=== PATIENT | female | born 1995 | race Caucasian/White ===

== ENCOUNTER 2019-01-06 19:23 | Inpatient (IN) | payer OTHER ==
[~2019-01-06] VITALS: Ht 167.6 cm; Wt 78.0 kg
[2019-01-06 22:08] VITALS: BP 122/81; PULSE 79; RESP 20
--- NOTE | 2019-01-06 22:20 | HP ---
Date/Time of Note Date/Time of Note DATE: 01/06/19 TIME: 22:20 Assessment/Plan VTE Prophylaxis SCD applied (from [facility] [place], [place]): Yes Pharmacological prophylaxis: NA/contraindicated Pharm contraindication: low risk/ambulating Assessment/Plan Hospital Course This is a 23-year female being admitted to the [facility] floor for: #1 right-sided hydronephrosis: Etiology unknown possibly secondary to UPJ obstruction. CT of the abdomen pelvis without contrast which showed: Unchanged moderate right hydronephrosis of uncertain etiology, possible UPJ obstruction. She has a normal creatinine. She had a urinalysis that was performed that was negative for any signs of acute infection. We will repeat a urinalysis. We will hydrate the patient with normal saline. Will consult urology and keep the patient n.p.o. except meds in case of any procedural intervention needs to be performed. Will order a KUB and renal ultrasound. #2 asthma: Singulair, PRN albuterol #3 history of depression: Monitor closely, psych consultation if indicated #4 DVT GI prophylaxis: SCDs, no GI prophylaxis indicated Further treatment strategy will be implemented with clinical course HPI/ROS Admit Date/Time Admit Date/Time Jan 06, 2019 at 20:47 Hx of Present Illness Chief complaint: Abdominal pain This is a 23-year-old female with a past medical history of asthma, PTSD, depression who presented to [facility] with complaints of severe right flank pain that started at 8 a.m. She reports that the pain associated with nausea and vomiting. She did reports that she also felt hot. She reported that she had a similar episode approximately 1 month ago and was told that she had a swollen kidney. She denies any urinary frequency urgency or dysuria. Her last menstrual period was on December 01. Pertinent laboratory findings a transversely showed: CBC: White blood cell count 8.7/hemoglobin 13.1/hematocrit 40.0/platelet count 201 BMP sodium 138 potassium 3.7 chloride 102 CO2 23 glucose 88 creatinine 0.99 BUN 10 lipase 19 beta-hCG serum was negative urinalysis was negative for leukoesterase and negative for nitrites. She had a CT of the abdomen pelvis without contrast which showed: Unchanged moderate right hydronephrosis of uncertain etiology, possible UPJ obstruction. Mild pelvic free fluid. Chest x-ray: Normal examination Allergies: NKDA Medications: Albuterol inhaler Singulair 10 mg p.o. daily Zofran 4 mg as needed ROS Const: As per HPI Eyes : No pain discharge or redness or change in visual acuity ENT: No pain, sore throat, congestion, congestion, dysphagia or discharge Respiratory: No shortness of breath, cough, sputum, wheezing, or pleuritic pain Cardiovascular: No chest pain, palpitation, PND, or edema GI : As per HPI Genitourinary: As per HPI Musculoskeletal: No joint pain, back pain, neck pain, restricted range of motion in neck or joints Skin: No rash, bruising or hives Neuro: No headache, dizziness, syncope, seizure, focal weakness Endocrine: No polyuria, polydipsia, temperature intolerance Psych: No hallucination, depression, anxiety or suicidal ideation PMH/Family/Social Past Medical History Asthma, PTSD, depression, hydronephrosis Medications Current Medications Sodium Chloride 1,000 ml @ 100 mls/hr Q10H IV ; Start 01/06/19 at 22:08; Stop 01/07/19 at 10:07 IV Flush (NS 3 ml) 3 ml PER PROTOCOL IV ; Start 01/06/19 at 22:30 Ondansetron HCl (Zofran Inj) 4 mg Q6H PRN IV NAUSEA/VOMITING; Start 01/06/19 at 22:30 Acetaminophen (Tylenol Tab) 650 mg Q6H PRN PO .PAIN 1-3 OR TEMP; Start 01/06/19 at 22:30 Acetaminophen/ Hydrocodone Bitart ([place] (5/325)) 1 tab Q6H PRN PO .MOD PAIN 4- 6; Start 01/06/19 at 22:30 Morphine Sulfate (morphine) 2 mg Q4H PRN IV .SEVERE PAIN 7-10; Start 01/06/19 at 22:30 Docusate Sodium (Colace) 100 mg Q12H PRN PO .CONSTIPATION; Start 01/06/19 at 22:30 Bisacodyl (Dulcolax) 5 mg DAILY PRN PO .CONSTIPATION; Start 01/06/19 at 22:30 Coded Allergies: No Known Allergies (Verified Allergy, Unknown, 01/06/19) Past Surgical History Past Surgical Hx: no surgical history Family History Significant Family History: no pertinent family hx Social History Alcohol Use: none Smoking Status: Never smoker Drug Use: none Exam/Review of Systems Vital Signs Vitals Vital Signs Date Temp Pulse Resp B/P (MAP) Pulse Ox O2 O2 Flow FiO2 Time Delivery Rate 01/06/19 98.3 79 20 122/81 99 22:08 (95) Exam Exam General: Patient is a pleasant female currently lying in bed in mild discomfort from right-sided flank pain HEENT: Atraumatic, normocephalic. The pupils are equal, round and reactive. Extraocular motor are intact Neck: Supple with full range of motion. No rigidity or meningismus Chest: Nontender Lungs: Clear to auscultation bilaterally no crackles rales or wheezing Heart: Normal S1-S2, Regular rhythm and rate. No murmur, S3, or S4 Abdomen: Soft , right-sided flank pain to palpation, nontender, nondistended , bowel sounds are present. No guarding no rebound tenderness , No masses or organomegaly. Extremities: Normal to inspection, no edema no cyanosis Neurologic: Normal mental status, speech normal, cranial nerves II through XII are intact, motor and sensory are intact, NIKITA VELAZCO Jan 06, 2019 22:20
[2019-01-06] MEDS: morphine 2 MG INJ IV PRN (22:28)
[2019-01-06] MEDS ORDERED: NACL 0.9% 3 ML SYG IV SCH (22:30)
[2019-01-06] MEDS ORDERED: ACETAMINOPHEN 325 MG TAB PO PRN (22:30)
[2019-01-06] MEDS ORDERED: DOCUSATE SODIUM 100 MG CAP PO PRN (22:30)
[2019-01-06] MEDS ORDERED: BISACODYL (EC) 5 MG TAB PO PRN (22:30)
[2019-01-06] MEDS: ONDANSETRON 4 MG INJ IV PRN (22:33)
[2019-01-06] MEDS: SOD CHLORIDE 0.9% 1,000 ML IV SCH (23:03)
[2019-01-06] MEDS: HYDROCODONE/APAP (5/325) TAB PO PRN (23:21)
[2019-01-07] MEDS ORDERED: POTASSIUM CHLORIDE (SR) 20 MEQ TAB PO STA (00:46)
[2019-01-07] MEDS ORDERED: LORAZEPAM 0.5 MG TAB PO ONE (01:00)
[2019-01-07] MEDS ORDERED: ALBUTEROL 0.083% (NEB) 2.5 MG/3 ML AMP HHN PRN (01:00)
[2019-01-07] MEDS: HYDROmorphONE 0.5 MG/0.5 ML SYG IV PRN ×4 (01:01→19:48)
[2019-01-07 02:29] VITALS: BP 131/74; PULSE 70; RESP 18
[2019-01-07] MEDS ORDERED: ALBUTEROL/IPRATROPIUM (NEB) 3 ML AMP HHN STA (07:16)
[2019-01-07] MEDS ORDERED: LORAZEPAM 2 MG INJ ONE (07:20)
--- NOTE | 2019-01-07 07:29 | EN ---
Date/Time of Note Date/Time of Note DATE: 01/07/19 TIME: : Event Note Medicine Medicine Event Note FIRE HAZARD INSPECTOR note FIRE HAZARD INSPECTOR called at approximately 7:05 AM. FIRE HAZARD INSPECTOR called for acute respiratory distress. Patient seen and examined at the bedside. Patient was not noticeably in respiratory distress. Patient's blood pressure was elevated in the 170s, she was satting at 97% on room air. Patient was having audible expiratory wheezing from the upper airway. She is looked to be in a panic attack however patient states that she felt like it was her asthma. Lungs were clear to auscultation. She was given a stat nebulization breathing treatment and she was also given a dose of Ativan. Patient was subsequently improved. Solu-Medrol was also ordered. Vitals: Heart rate 120 blood pressure 170/86 respirations 30 SPO2 97% on room air General: Patient appears to be in acute respiratory distress, she does have some upper airway wheezing Lungs: Clear to auscultation bilaterally CVS: Sinus tachycardia Neuro: Alert and oriented, she does appear to be in respiratory distress Assessment and plan: #1 acute respiratory distress: Anxiety versus asthma exacerbation. Lungs appear to be clear on auscultation. She was given a DuoNeb treatment as well as Ativan with subsequent good response. Loading dose of Solu-Medrol was also ordered. My suspicion is that this is more likely anxiety, however we will continue to monitor. Nebs as needed. Continue to monitor on MedSurg. Greater than 25 minutes of critical care time was spent on the care management this patient. NIKTIA VELAZCO Jan 07, 2019 07:29
[2019-01-07] MEDS ORDERED: ALBUTEROL/IPRATROPIUM (NEB) 3 ML AMP HHN PRN ×2 (07:30→15:00)
[2019-01-07] MEDS ORDERED: LORAZEPAM 2 MG INJ IV ONE (07:30)
[2019-01-07] MEDS ORDERED: METHYLPREDNISOLONE 125 MG INJ IV ONE (07:30)
[2019-01-07] MEDS: SOD CHLORIDE 0.9% 1,000 ML IV SCH ×2 (08:01→08:35)
[2019-01-07 08:14] VITALS: BP 139/98; PULSE 93; RESP 18
[2019-01-07] MEDS: MONTELUKAST 10 MG TAB PO SCH (08:24)
--- NOTE | 2019-01-07 08:34 | CONS ---
Assessment/Plan Assessment/Plan Hospital Course (Demo Recall) 23-year-old female presented to the emergency room at [facility] with a right flank pain. She underwent a CT scan of the abdomen and pelvis and that showed a right hydronephrosis possibly secondary to ureteropelvic junction obstruction. Patient was transferred to [facility] because of her insurance. Patient states that she did have nausea but no vomiting. She denies any gross hematuria, no dysuria, no urgency or frequency. She did have a similar pain about a month ago and she also had a CT scan and the same findings were noted. The present CT scan was unchanged when compared to the previous one. The patient does not think that the pain is associated with the her oral intake of fluids. On the exam she is tender in the right flank area,right side of the abdomen and suprapubic area. Impression:1- Right hydronephrosis possible right ureteropelvic junction obstruction. 2-rule out urinary tract infection Plan: Renal scan with Lasix, urine culture. Consultation Date/Type/Reason Admit Date/Time Jan 06, 2019 at 20:47 Date of Consultation: Jan 07, 2019 Type of Consult Urology Reason for Consultation Right hydronephrosis Requesting Provider: NIKITA VELAZCO Date/Time of Note DATE: 01/07/19 TIME: 08:25 Hx of Present Illness 23-year-old female presented to the emergency room at [facility] with a right flank pain. She underwent a CT scan of the abdomen and pelvis and that showed a right hydronephrosis possibly secondary to ureteropelvic junction obstruction. Patient was transferred to [facility] because of her insurance. Patient states that she did have nausea but no vomiting. She denies any gross hematuria, no dysuria, no urgency or frequency. She did have a similar pain about a month ago and she also had a CT scan and the same findings were noted. The present CT scan was unchanged when compared to the previous one. The patient does not think that the pain is associated with the her oral intake of fluids. Constitutional: no complaints Eyes: no complaints ENT: no complaints Respiratory: shortness of breath, other (History of asthma) Cardiovascular: No chest pain Gastrointestinal: nausea; No vomiting Genitourinary: flank pain (Right side) Skin: other (Has tattoos on most of her body) Neurologic: no complaints Endocrine: no complaints Lymphatic: no complaints Psychological: anxiety Immunologic: no complaints Past Medical History Medical History: other (Asthma and anxiety) Medications Current Medications Sodium Chloride 1,000 ml @ 100 mls/hr Q10H IV Last administered on 01/06/19at 23:03; Admin Dose 100 MLS/HR; Start 01/06/19 at 22:08; Stop 01/07/19 at 10:07 IV Flush (NS 3 ml) 3 ml PER PROTOCOL IV ; Start 01/06/19 at 22:30 Ondansetron HCl (Zofran Inj) 4 mg Q6H PRN IV NAUSEA/VOMITING Last administered on 01/06/19at 22:33; Admin Dose 4 MG; Start 01/06/19 at 22:30 Acetaminophen (Tylenol Tab) 650 mg Q6H PRN PO .PAIN 1-3 OR TEMP; Start 01/06/19 at 22:30 Acetaminophen/ Hydrocodone Bitart ([place] (5/325)) 1 tab Q6H PRN PO .MOD PAIN 4- 6 Last administered on 01/06/19at 23:21; Admin Dose 1 TAB; Start 01/06/19 at 22:30 Morphine Sulfate (morphine) 2 mg Q4H PRN IV .SEVERE PAIN 7-10 Last administered on 01/06/19at 22:28; Admin Dose 2 MG; Start 01/06/19 at 22:30 Docusate Sodium (Colace) 100 mg Q12H PRN PO .CONSTIPATION; Start 01/06/19 at 22:30 Bisacodyl (Dulcolax) 5 mg DAILY PRN PO .CONSTIPATION; Start 01/06/19 at 22:30 Hydromorphone HCl (Dilaudid) 0.5 mg Q4H PRN IV SEVERE PAIN LEVEL 7-10 Last a dministered on 01/07/19at 07:02; Admin Dose 0.5 MG; Start 01/07/19 at 01:00 Albuterol (Proventil 0.083% (Neb)) 2.5 mg Q4H RESP THERAPY PRN HHN SHORTNESS OF BREATH; Start 01/07/19 at 01:00 Miscellaneous Information Patients own medicat... BID@10,16 XX ; Start 01/07/19 at 10:00 Montelukast Sodium (Singulair) 10 mg DAILY PO ; Start 01/07/19 at 09:00 Lorazepam (Ativan) 0.5 mg Q12H PRN IV ANXIETY; Start 01/07/19 at 07:30 Allergies: Coded Allergies: No Known Allergies (Verified Allergy, Unknown, 01/06/19) Past Surgical History Past Surgical Hx: no surgical history Social History Alcohol Use: none Smoking Status: Never smoker Drug Use: none Other Social History She is single, denies any . Sexually active. Last menstrual periods December 15, 2018 Exam/Review of Systems Exam Vitals Vital Signs Date Temp Pulse Resp B/P (MAP) Pulse Ox O2 O2 Flow FiO2 Time Delivery Rate 01/07/19 97.4 93 18 139/98 99 Room Air 08:14 (112) Intake and Output 01/06/19 01/06/19 01/07/19 1515:00 23:00 07:00 IntakeIntake Total 600 ml BalanceBalance 600 ml Constitutional: alert, oriented Psych: anxiety Head: normocephalic Eyes: nl conjunctiva ENMT: nl external ears & nose Neck: supple Respiratory: normal air movement Cardiovascular: No jugular venous distention (JVD) Gastrointestinal: tender (Right side and in the right lower quadrant and suprapubic area) Genitourinary - Female: CVA tenderness (Right side) Musculoskeletal: nl extremities to inspection Extremities: No calf tenderness Neurological: nl mental status Skin: other (Tattoos on the most of her body) Results Result Diagram: 01/07/19 0547 01/07/19 0547 Results 24hrs Laboratory Tests Test 01/06/19 22:50 01/06/19 22:51 01/07/19 05:00 01/07/19 05:47 Serum HCG, NEGATIVE Qualitative White Blood Count 7.8 7.1 Red Blood Count 4.38 4.47 Hemoglobin 12.4 12.4 Hematocrit 38.7 39.0 Mean Corpuscular 88.4 87.2 Volume Mean Corpuscular 28.3 L 27.7 L Hemoglobin Mean Corpuscular 32.0 31.8 L Hemoglobin Concent Red Cell 12.7 12.9 Distribution Width Platelet Count 190 198 Mean Platelet Volume 11.2 H 11.4 H Immature 0.100 0.100 Granulocytes % Neutrophils % 51.7 54.2 Lymphocytes % 34.5 31.6 Monocytes % 11.6 H 12.0 H Eosinophils % 1.7 1.7 Basophils % 0.4 0.4 Nucleated Red Blood 0.0 0.0 Cells % Immature 0.010 0.010 Granulocytes # Neutrophils # 4.0 3.8 Lymphocytes # 2.7 2.2 Monocytes # 0.9 0.9 Eosinophils # 0.1 0.1 Basophils # 0.0 0.0 Nucleated Red Blood 0.0 0.0 Cells # Sodium Level 141 142 Potassium Level 3.4 L 4.4 Chloride Level 110 112 H Carbon Dioxide Level 24 23 Anion Gap 7 7 Blood Urea Nitrogen 9 8 Creatinine 0.90 0.89 Est Glomerular > 60 > 60 Filtrat Rate mL/min Glucose Level 80 78 Calcium Level 8.3 L 8.0 L Total Bilirubin 0.4 0.3 Direct Bilirubin 0.00 0.00 Indirect Bilirubin 0.4 0.3 Aspartate Amino 17 16 Transf (AST/SGOT) Alanine 14 16 Aminotransferase (AL T/SGPT) Alkaline Phosphatase 49 41 L Total Protein 6.6 6.1 Albumin 3.5 3.1 L Globulin 3.10 3.00 Albumin/Globulin 1.12 1.03 Ratio Urine Color YELLOW Urine Clarity CLEAR Urine pH 8.0 Urine Specific 1.009 [place] Urine Ketones NEGATIVE Urine Nitrite NEGATIVE Urine Bilirubin NEGATIVE Urine Urobilinogen NEGATIVE Urine Leukocyte NEGATIVE Esterase Urine Hemoglobin NEGATIVE Urine Glucose NEGATIVE Urine Total Protein NEGATIVE Medications Medication Current Medications Sodium Chloride 1,000 ml @ 100 mls/hr Q10H IV Last administered on 01/06/19at 23:03; Admin Dose 100 MLS/HR; Start 01/06/19 at 22:08; Stop 01/07/19 at 10:07 IV Flush (NS 3 ml) 3 ml PER PROTOCOL IV ; Start 01/06/19 at 22:30 Ondansetron HCl (Zofran Inj) 4 mg Q6H PRN IV NAUSEA/VOMITING Last administered on 01/06/19at 22:33; Admin Dose 4 MG; Start 01/06/19 at 22:30 Acetaminophen (Tylenol Tab) 650 mg Q6H PRN PO .PAIN 1-3 OR TEMP; Start 01/06/19 at 22:30 Acetaminophen/ Hydrocodone Bitart ([place] (5/325)) 1 tab Q6H PRN PO .MOD PAIN 4- 6 Last administered on 01/06/19at 23:21; Admin Dose 1 TAB; Start 01/06/19 at 22:30 Morphine Sulfate (morphine) 2 mg Q4H PRN IV .SEVERE PAIN 7-10 Last administered on 01/06/19at 22:28; Admin Dose 2 MG; Start 01/06/19 at 22:30 Docusate Sodium (Colace) 100 mg Q12H PRN PO .CONSTIPATION; Start 01/06/19 at 22:30 Bisacodyl (Dulcolax) 5 mg DAILY PRN PO .CONSTIPATION; Start 01/06/19 at 22:30 Hydromorphone HCl (Dilaudid) 0.5 mg Q4H PRN IV SEVERE PAIN LEVEL 7-10 Last administered on 01/07/19at 07:02; Admin Dose 0.5 MG; Start 01/07/19 at 01:00 Albuterol (Proventil 0.083% (Neb)) 2.5 mg Q4H RESP THERAPY PRN HHN SHORTNESS OF BREATH; Start 01/07/19 at 01:00 Miscellaneous Information Patients own medicat... BID@10,16 XX ; Start 01/07/19 at 10:00 Montelukast Sodium (Singulair) 10 mg DAILY PO ; Start 01/07/19 at 09:00 Lorazepam (Ativan) 0.5 mg Q12H PRN IV ANXIETY; Start 01/07/19 at 07:30 EVON ONTIVEROS MD Jan 07, 2019 08:34
--- NOTE | 2019-01-07 10:32 | PN ---
Date/Time of Note Date/Time of Note DATE: 01/07/19 TIME: 10:31 Assessment/Plan VTE Prophylaxis SCD applied (from [facility]): Yes Pharmacological prophylaxis: NA/contraindicated Pharm contraindication: low risk/ambulating Assessment/Plan Hospital Course SUBJECTIVE: Continues to have right-sided flank pain. OBJECTIVE: Physical Exam General: Adequately build 23 year-old female lying in bed in no apparent distress. HEENT: Normocephalic, atraumatic. Eyes: Anicteric sclerae, conjunctivae clear. ENT: Nasal septum midline, oral mucosa moist. Neck supple, no JVD noticed. Respiratory: Bilaterally clear breath sounds. No use of accessory muscles of respiration. No adventitious breath sounds. Cardiovascular: S1, S2 heard. Regular rate and rhythm. Abdomen: Soft and nondistended. Suprapubic and right lower quadrant tenderness. Bowel sounds positive in all 4 quadrants. Genitourinary: Right CVA tenderness. Extremities: No cyanosis, no clubbing, no edema. Peripheral pulses palpable. Neurologic: Cranial nerves II through XII grossly intact. The patient is awake, alert, and oriented. Skin: Normal skin turgor. No skin rashes. Multiple tattoos. Labs & Vitals per chart ASSESSMENT & PLAN 23-year-old female with past medical history of asthma, PTSD, and depression who presented to a local emergency room with chief complaint of severe right-sided flank pain with associated nausea and vomiting with the CT scan showing right- sided hydronephrosis, possible secondary to UPJ obstruction. The patient had similar CT scan findings approximately 1 month ago at the same facility. The patient was transferred to [facility] because of insurance reasons. 1. Right-sided hydronephrosis. Suspect UPJ obstruction. Urology following. Nuclear medicine renal scan with Lasix ordered. Continue pain control. 2. Asthma. Continue leukotriene inhibitors. Continue PRN YOBANI. 3. Anxiety disorder. Continue PRN anxiolytics. 4. Fluids, electrolytes, and nutrition. Regular diet. 5. DVT prophylaxis. Bilateral SCDs. 6. Plan. Continue pain control. Await nuclear medicine renal scan. Await further urology recommendations. The patient was seen in collaboration with Dr. Blood. Result Diagram: 01/07/19 0547 01/07/19 0547 Results 24hrs Laboratory Tests Test 01/06/19 22:50 01/06/19 22:51 01/07/19 05:00 01/07/19 05:47 Serum HCG, NEGATIVE Qualitative White Blood Count 7.8 7.1 Red Blood Count 4.38 4.47 Hemoglobin 12.4 12.4 Hematocrit 38.7 39.0 Mean Corpuscular 88.4 87.2 Volume Mean Corpuscular 28.3 L 27.7 L Hemoglobin Mean Corpuscular 32.0 31.8 L Hemoglobin Concent Red Cell 12.7 12.9 Distribution Width Platelet Count 190 198 Mean Platelet Volume 11.2 H 11.4 H Immature 0.100 0.100 Granulocytes % Neutrophils % 51.7 54.2 Lymphocytes % 34.5 31.6 Monocytes % 11.6 H 12.0 H Eosinophils % 1.7 1.7 Basophils % 0.4 0.4 Nucleated Red Blood 0.0 0.0 Cells % Immature 0.010 0.010 Granulocytes # Neutrophils # 4.0 3.8 Lymphocytes # 2.7 2.2 Monocytes # 0.9 0.9 Eosinophils # 0.1 0.1 Basophils # 0.0 0.0 Nucleated Red Blood 0.0 0.0 Cells # Sodium Level 141 142 Potassium Level 3.4 L 4.4 Chloride Level 110 112 H Carbon Dioxide Level 24 23 Anion Gap 7 7 Blood Urea Nitrogen 9 8 Creatinine 0.90 0.89 Est Glomerular > 60 > 60 Filtrat Rate mL/min Glucose Level 80 78 Calcium Level 8.3 L 8.0 L Total Bilirubin 0.4 0.3 Direct Bilirubin 0.00 0.00 Indirect Bilirubin 0.4 0.3 Aspartate Amino 17 16 Transf (AST/SGOT) Alanine 14 16 Aminotransferase (AL T/SGPT) Alkaline Phosphatase 49 41 L Total Protein 6.6 6.1 Albumin 3.5 3.1 L Globulin 3.10 3.00 Albumin/Globulin 1.12 1.03 Ratio Urine Color YELLOW Urine Clarity CLEAR Urine pH 8.0 Urine Specific 1.009 [place] Urine Ketones NEGATIVE Urine Nitrite NEGATIVE Urine Bilirubin NEGATIVE Urine Urobilinogen NEGATIVE Urine Leukocyte NEGATIVE Esterase Urine Hemoglobin NEGATIVE Urine Glucose NEGATIVE Urine Total Protein NEGATIVE Exam/Review of Systems Exam Vitals Vital Signs Date Temp Pulse Resp B/P (MAP) Pulse Ox O2 O2 Flow FiO2 Time Delivery Rate 01/07/19 97.4 93 18 139/98 99 Room Air 08:14 (112) Intake and Output 01/06/19 01/06/19 01/07/19 1515:00 23:00 07:00 IntakeIntake Total 600 ml BalanceBalance 600 ml Results Results 24hrs Laboratory Tests Test 01/06/19 22:50 01/06/19 22:51 01/07/19 05:00 01/07/19 05:47 Serum HCG, NEGATIVE Qualitative White Blood Count 7.8 7.1 Red Blood Count 4.38 4.47 Hemoglobin 12.4 12.4 Hematocrit 38.7 39.0 Mean Corpuscular 88.4 87.2 Volume Mean Corpuscular 28.3 L 27.7 L Hemoglobin Mean Corpuscular 32.0 31.8 L Hemoglobin Concent Red Cell 12.7 12.9 Distribution Width Platelet Count 190 198 Mean Platelet Volume 11.2 H 11.4 H Immature 0.100 0.100 Granulocytes % Neutrophils % 51.7 54.2 Lymphocytes % 34.5 31.6 Monocytes % 11.6 H 12.0 H Eosinophils % 1.7 1.7 Basophils % 0.4 0.4 Nucleated Red Blood 0.0 0.0 Cells % Immature 0.010 0.010 Granulocytes # Neutrophils # 4.0 3.8 Lymphocytes # 2.7 2.2 Monocytes # 0.9 0.9 Eosinophils # 0.1 0.1 Basophils # 0.0 0.0 Nucleated Red Blood 0.0 0.0 Cells # Sodium Level 141 142 Potassium Level 3.4 L 4.4 Chloride Level 110 112 H Carbon Dioxide Level 24 23 Anion Gap 7 7 Blood Urea Nitrogen 9 8 Creatinine 0.90 0.89 Est Glomerular > 60 > 60 Filtrat Rate mL/min Glucose Level 80 78 Calcium Level 8.3 L 8.0 L Total Bilirubin 0.4 0.3 Direct Bilirubin 0.00 0.00 Indirect Bilirubin 0.4 0.3 Aspartate Amino 17 16 Transf (AST/SGOT) Alanine 14 16 Aminotransferase (AL T/SGPT) Alkaline Phosphatase 49 41 L Total Protein 6.6 6.1 Albumin 3.5 3.1 L Globulin 3.10 3.00 Albumin/Globulin 1.12 1.03 Ratio Urine Color YELLOW Urine Clarity CLEAR Urine pH 8.0 Urine Specific 1.009 [place] Urine Ketones NEGATIVE Urine Nitrite NEGATIVE Urine Bilirubin NEGATIVE Urine Urobilinogen NEGATIVE Urine Leukocyte NEGATIVE Esterase Urine Hemoglobin NEGATIVE Urine Glucose NEGATIVE Urine Total Protein NEGATIVE Medications Medication Current Medications IV Flush (NS 3 ml) 3 ml PER PROTOCOL IV ; Start 01/06/19 at 22:30 Ondansetron HCl (Zofran Inj) 4 mg Q6H PRN IV NAUSEA/VOMITING Last administered on 01/06/19at 22:33; Admin Dose 4 MG; Start 01/06/19 at 22:30 Acetaminophen (Tylenol Tab) 650 mg Q6H PRN PO .PAIN 1-3 OR TEMP; Start 01/06/19 at 22:30 Acetaminophen/ Hydrocodone Bitart ([place] (5/325)) 1 tab Q6H PRN PO .MOD PAIN 4- 6 Last administered on 01/06/19at 23:21; Admin Dose 1 TAB; Start 01/06/19 at 22:30 Morphine Sulfate (morphine) 2 mg Q4H PRN IV .SEVERE PAIN 7-10 Last administered on 01/06/19at 22:28; Admin Dose 2 MG; Start 01/06/19 at 22:30 Docusate Sodium (Colace) 100 mg Q12H PRN PO .CONSTIPATION; Start 01/06/19 at 22:30 Bisacodyl (Dulcolax) 5 mg DAILY PRN PO .CONSTIPATION; Start 01/06/19 at 22:30 Hydromorphone HCl (Dilaudid) 0.5 mg Q4H PRN IV SEVERE PAIN LEVEL 7-10 Last administered on 01/07/19at 07:02; Admin Dose 0.5 MG; Start 01/07/19 at 01:00 Albuterol (Proventil 0.083% (Neb)) 2.5 mg Q4H RESP THERAPY PRN HHN SHORTNESS OF BREATH; Start 01/07/19 at 01:00 Miscellaneous Information Patients own medicat... BID@16 XX ; Start 01/07/19 at 10:00 Montelukast Sodium (Singulair) 10 mg DAILY PO Last administered on 01/07/19at 08:24; Admin Dose 10 MG; Start 01/07/19 at 09:00 Lorazepam (Ativan) 0.5 mg Q12H PRN IV ANXIETY; Start 01/07/19 at 07:30 LORENZO AUGUST NP Jan 07, 2019 10:32
[2019-01-07] MEDS: morphine 2 MG INJ IV PRN (12:44)
[2019-01-07] MEDS ORDERED: FUROSEMIDE 40 MG INJ IV ONE (14:00)
[2019-01-07] MEDS: ALBUTEROL/IPRATROPIUM (NEB) 3 ML AMP HHN SCH ×2 (14:30→19:31)
[2019-01-07] MEDS: LORAZEPAM 2 MG INJ IV PRN (17:03)
[2019-01-07 19:42] VITALS: BP 131/78; PULSE 105; RESP 16
[2019-01-07] MEDS: ONDANSETRON 4 MG INJ IV PRN (19:48)
[2019-01-07] MEDS: morphine 4 MG/ML VIAL IV PRN (21:30)
[2019-01-08] MEDS: ALBUTEROL/IPRATROPIUM (NEB) 3 ML AMP HHN SCH ×2 (00:57→08:00)
[2019-01-08] MEDS: morphine 4 MG/ML VIAL IV PRN ×2 (01:16→05:17)
[2019-01-08] MEDS: ONDANSETRON 4 MG INJ IV PRN (01:16)
[2019-01-08 02:16] VITALS: BP 114/60; PULSE 87; RESP 18
[2019-01-08] MEDS: LORAZEPAM 2 MG INJ IV PRN (06:03)
[2019-01-08 08:00] VITALS: BP 109/73; PULSE 60; RESP 17
--- NOTE | 2019-01-08 08:16 | CONS ---
Consult Date/Type/Reason Admit Date/Time Jan 06, 2019 at 20:47 Initial Consult Date 01/07/19 Type of Consultation: Urology Reason for Consultation Right hydronephrosis possible right ureteropelvic junction obstruction Requesting Provider: NIKITA VELAZCO Date/Time of Note DATE: 01/08/19 TIME: 08:10 Subjective Patient denies having any pain at the present. She did have pain yesterday after she was given Lasix at the time of the renal scan. Objective Vitals Vital Signs Date Temp Pulse Resp B/P (MAP) Pulse Ox O2 O2 Flow FiO2 Time Delivery Rate 01/08/19 08:01 01/08/19 98.3 87 18 114/60 94 Room Air 02:16 (78) 01/07/19 2.0 07:20 Intake and Output 01/07/19 01/07/19 01/08/19 1515:00 23:00 07:00 IntakeIntake Total 480 ml 400 ml 300 ml OutputOutput Total 1100 ml BalanceBalance -620 ml 400 ml 300 ml Exam Patient is comfortable and has no pain. Her CBC showing an elevated white count this morning. Urine culture was ordered but the result is still pending. Results/Medications Result Diagram: 01/08/19 0524 01/08/19 0523 Results 24 hrs Laboratory Tests Test 01/08/19 05:23 01/08/19 05:24 Sodium Level 142 Potassium Level 3.9 Chloride Level 108 Carbon Dioxide Level 26 Anion Gap 8 Blood Urea Nitrogen 9 Creatinine 0.84 Est Glomerular Filtrat Rate mL/min > 60 Glucose Level 105 Calcium Level 8.9 Total Bilirubin 0.3 Direct Bilirubin 0.00 Indirect Bilirubin 0.3 Aspartate Amino Transf (AST/SGOT) 15 Alanine Aminotransferase (ALT/SGPT) 20 Alkaline Phosphatase 50 Total Protein 6.7 Albumin 3.6 Globulin 3.10 Albumin/Globulin Ratio 1.16 White Blood Count 13.3 #H Red Blood Count 4.52 Hemoglobin 12.8 Hematocrit 38.7 Mean Corpuscular Volume 85.6 Mean Corpuscular Hemoglobin 28.3 L Mean Corpuscular Hemoglobin Concent 33.1 Red Cell Distribution Width 13.0 Platelet Count 219 Mean Platelet Volume 11.4 H Immature Granulocytes % 0.500 H Neutrophils % 77.8 H Lymphocytes % 11.6 L Monocytes % 10.0 Eosinophils % 0.0 Basophils % 0.1 Nucleated Red Blood Cells % 0.0 Immature Granulocytes # 0.070 H Neutrophils # 10.3 H Lymphocytes # 1.5 Monocytes # 1.3 H Eosinophils # 0.0 Basophils # 0.0 Nucleated Red Blood Cells # 0.0 Phosphorus Level 4.9 Magnesium Level 2.0 Medications Current Medications IV Flush (NS 3 ml) 3 ml PER PROTOCOL IV ; Start 01/06/19 at 22:30 Ondansetron HCl (Zofran Inj) 4 mg Q6H PRN IV NAUSEA/VOMITING Last administered on 01/08/19at 01:16; Admin Dose 4 MG; Start 01/06/19 at 22:30 Acetaminophen (Tylenol Tab) 650 mg Q6H PRN PO .PAIN 1-3 OR TEMP; Start 01/06/19 at 22:30 Acetaminophen/ Hydrocodone Bitart ([place] (5/325)) 1 tab Q6H PRN PO .MOD PAIN 4- 6 Last administered on 01/06/19at 23:21; Admin Dose 1 TAB; Start 01/06/19 at 22:30 Docusate Sodium (Colace) 100 mg Q12H PRN PO .CONSTIPATION; Start 01/06/19 at 22:30 Bisacodyl (Dulcolax) 5 mg DAILY PRN PO .CONSTIPATION; Start 01/06/19 at 22:30 Miscellaneous Information Patients own medicat... BID@10,16 XX ; Start 01/07/19 at 10:00 Montelukast Sodium (Singulair) 10 mg DAILY PO Last administered on 01/07/19at 08:24; Admin Dose 10 MG; Start 01/07/19 at 09:00 Lorazepam (Ativan) 0.5 mg Q12H PRN IV ANXIETY Last administered on 01/08/19at 06:03; Admin Dose 0.5 MG; Start 01/07/19 at 07:30 Albuterol/ Ipratropium (Duoneb) 3 ml Q6H RESP THERAPY HHN Last administered on 01/07/19at 19:31; Admin Dose 3 ML; Start 01/07/19 at 14:30 Albuterol/ Ipratropium (Duoneb) 3 ml Q4H RESP THERAPY PRN HHN SHORTNESS OF BREATH; Start 01/07/19 at 07:30 Morphine Sulfate (morphine) 4 mg Q4H PRN IV SEVERE PAIN LEVEL 7-10 Last administered on 01/08/19at 05:17; Admin Dose 4 MG; Start 01/07/19 at 21:30 Imaging Renal scan with Lasix: 1. Mildly reduced flow and function of the right kidney with mild retention of uptake in the right renal pelvis on the delayed images and normal washout of activity following Lasix administration, with no scintigraphic evidence to suggest the presence of obstructive hydronephrosis. 2. Normal flow and function of the left kidney with normal washout of uptake following Lasix administration. 3. Split function is 45 % for the left kidney and 55 % for the right kidney. Assessment/Plan Hospital Course (Demo Recall) 23-year-old female presented to the emergency room at [facility] with a right flank pain. She underwent a CT scan of the abdomen and pelvis and that showed a right hydronephrosis possibly secondary to ureteropelvic junction obstruction. Patient was transferred to [facility] because of her insurance. Patient states that she did have nausea but no vomiting. She denies any gross hematuria, no dysuria, no urgency or frequency. She did have a similar pain about a month ago and she also had a CT scan and the same findings were noted. The present CT scan was unchanged when compared to the previous one. The patient does not think that the pain is associated with the her oral intake of fluids. Patient underwent nuclear medicine scan of her kidney with Lasix and that showed: 1. Mildly reduced flow and function of the right kidney with mild retention of uptake in the right renal pelvis on the delayed images and normal washout of activity following Lasix administration, with no scintigraphic evidence to suggest the presence of obstructive hydronephrosis. 2. Normal flow and function of the left kidney with normal washout of uptake following Lasix administration. 3. Split function is 45 % for the left kidney and 55 % for the right kidney. Urine culture is still pending. Patient does have elevated white count. I will put her on Bactrim DS in case there is a urinary tract infection while waiting for the result of the culture. EVON ONTIVEROS MD Jan 08, 2019 08:16
[2019-01-08] MEDS: MONTELUKAST 10 MG TAB PO SCH (08:47)
[2019-01-08] MEDS ORDERED: TRIMETHOPRIM/SULFAMETHOX (DS) TAB PO SCH (09:00)
[2019-01-08] MEDS ORDERED: OXYC-279 PO (12:25)
[2019-01-08] MEDS ORDERED: ONDA4TAB8 PO (12:25)
--- NOTE | 2019-01-08 12:28 | PDOCDIS ---
Discharge Instructions CONDITION [id number] Patient Condition: [id number] Stable HOME CARE INSTRUCTIONS: [id number] Diet Instructions: [id number] Regular OTHER ORDERS: Other Orders: 1. Take pain medications as needed. 2. Take a regular diet as tolerated. 3. Resume activities as tolerated 4. Please follow-up with outpatient urology. 5. Please go to the nearest emergency room if you have significant flank pain, persistent nausea/vomiting, fevers, or any other unusual signs/symptoms. LORENZO AUGUST NP Jan 08, 2019 12:28
[2019-01-08] MEDS ORDERED: SULF-182 PO (12:29)
[2019-01-08] MEDS ORDERED: Work Note (12:31)
[2019-01-08] MEDS: HYDROCODONE/APAP (5/325) TAB PO PRN (13:16)
--- NOTE | 2019-01-08 13:44 | DS ---
Date/Time of Note Date/Time of Note DATE: 01/08/19 TIME: 13:42 Discharge Summary Admission/Discharge Info Admit Date/Time Jan 06, 2019 at 20:47 Discharge Date/Time Jan 08, 2019 at 13:32 Discharge Diagnosis 1. Right-sided hydronephrosis. 2. Asthma. 3. Anxiety disorder. 4. Positive cocaine in urine drug screen. Patient Condition: Stable Consults 1. Milton Ontiveros MD, Urology. Procedures [place] [id number] Radiology Main Line: [phone] DIAGNOSTIC IMAGING REPORT Patient: FAY MENDIOLA : 1995 Age: 23 Sex: F MR #: [id number] DOS: 01/07/19 0000 Ordering MD: NIKITA VELAZCO MD Location: [facility] Room/Bed: [facility] PROCEDURE: US Retroperitoneum. CLINICAL INDICATION: Hydronephrosis. TECHNIQUE: Multiple sonographic images of the retroperitoneum were obtained. Evaluation of the kidneys and bladder was performed as well as visualization of the aorta and other retroperitoneal structures using a curved array transducer. The images were reviewed on a PACS workstation. COMPARISON: No prior studies are available for comparison. FINDINGS: The kidneys are well visualized. The right kidney measures 10.8 cm in length. The left kidney measures 10.7 cm in length. There are no focal areas of abnormal echogenicity. There is moderate to severe right hydronephrosis which is seen pre and post void. There is no evidence of renal calculus or renal mass. No perinephric fluid collection is seen. The aorta and IVC are of normal caliber. There is no evidence for aortic aneurysm. The bladder is unremarkable. No significant postvoid residual is seen. IMPRESSION: Moderate to severe right hydronephrosis. [place] [address] Radiology Main Line: [phone] DIAGNOSTIC IMAGING REPORT Patient: FAY MENDIOLA : 1995 Age: 23 Sex: F MR #: [id number] DOS: 01/07/19 0818 Ordering MD: MILTON ONTIVEROS MD Location: [facility] Room/Bed: [facility] PROCEDURE: Renal scan flow and function study with Lasix CLINICAL INDICATION: 23 -year-old patient with moderate to severe right -sided hydronephrosis, for evaluation for obstructive process. TECHNIQUE: Following the intravenous injection of 10.1 mCi of Tc-99m MAG3, renal scan, flow and function study was obtained. The patient was then given an intravenous injection of 40 mg of Lasix and imaging acquisition was continued for additional 30 minutes. COMPARISON: No prior renal scans. Ultrasound of the abdomen dated January 07, 2019 FINDINGS: Blood flow phase of the study demonstrates normal bolus aortic transit time, mildly decreased blood flow to the right kidney and normal blood flow to the left kidney. Function phase of the study demonstrates mildly reduced initial extraction of the right kidney and normal initial extraction of the left kidney. On the delayed views, there is evidence of a mild retention of uptake in the right renal pelvis. Following Lasix administration, there is evidence of a normal washout of activity from both kidneys, with calculated T1/2 time of 5 minutes for the left kidney and 6 minutes for the right kidney (normal is less than 10 minutes, borderline between 10 and 20 minutes, abnormal is greater than 20 minutes). Split function is 45 % for the left kidney and 55 % for the right kidney. IMPRESSION: 1. Mildly reduced flow and function of the right kidney with mild retention of uptake in the right renal pelvis on the delayed images and normal washout of activity following Lasix administration, with no scintigraphic evidence to suggest the presence of obstructive hydronephrosis. 2. Normal flow and function of the left kidney with normal washout of uptake following Lasix administration. 3. Split function is 45 % for the left kidney and 55 % for the right kidney. RPTAT: HH .Gema Lyass, MD, MD Date Time Electronically viewed and signed by .Gema Kebede MD, MD on 01/07/2019 15:42 Hx of Present Illness This is a 23-year-old female with past medical history of asthma, PTSD, and depression who presented to a local emergency room with chief complaint of severe right-sided flank pain with associated nausea and vomiting with the CT scan showing right-sided hydronephrosis, possible secondary to UPJ obstruction. The patient had similar CT scan findings approximately 1 month ago at the same facility. The patient was transferred to [facility] because of insurance reasons. Hospital Course Urology consult was obtained. The patient underwent a nuclear medicine renal scan flow and function study with Lasix that was showing mildly reduced flow and function of the right kidney with mild retention of uptake in the right renal pelvis on the delayed images and normal washout of activity following Lasix administration with no scintigraphic evidence to suggest presence of obstructive hydronephrosis. As per the urologist, the patient needs to drink fluids in small amounts to help relieve the symptoms. There was no evidence of any obstruction that required urologic intervention. The patient's pain improved throughout the hospital course. The patient will be discharged home on a short course of analgesics, to be followed up with outpatient urology. The patient's chronic problems include asthma. The patient was maintained on leukotriene inhibitors and as needed YOBANI. The patient has underlying anxiety disorder. The patient was maintained on anxiolytics. The patient is otherwise a relatively healthy person without any significant comorbidities. The patient's urine drug screen was showing positive cocaine. The patient was not confronted regarding this specifically. The patient previously denied any use of recreational drugs. Discharge Instructions 1. Take pain medications as needed. 2. Take a regular diet as tolerated. 3. Resume activities as tolerated 4. Please follow-up with outpatient urology. 5. Please go to the nearest emergency room if you have significant flank pain, persistent nausea/vomiting, fevers, or any other unusual signs/symptoms. The patient verbalized understanding of discharge instructions. At this time I would like to thank Dr. Ontiveros for seeing the patient and providing clinical recommendations. The patient was seen in collaboration with Dr. Blood. [place] [facility] [Work Note] No Conflict Check This is to certify that this patient was hospitalized at [facility] from 01/06/2019 to 01/08/2019. She may return back to work/school on 01/12/2019 with no restrictions. Prov:LORENZO AUGUST NP 01/08/19 Sulfamethoxazole/Trimethoprim (Sulfamethoxazole-Tmp Ds Tablet) 1 Each Tablet, 1 TAB PO BID, #10 TAB Prov:LORENZO AUGUST NP 01/08/19 Ondansetron Hcl* (Zofran*) 4 Mg Tablet, 4 MG PO Q6H PRN for NAUSEA AND OR VOMITING, #10 TAB Prov:LORENZO AUGUST NP 01/08/19 Oxycodone HCl/Acetaminophen (Percocet 5-325 mg Tablet) 1 Each Tablet, 1 EACH PO Q6H, #14 TAB Prov:LORENZO AUGUST NP 01/08/19 Follow-up Plan Patient to follow-up with outpatient PCP and Urology. Primary Care Provider Not On Staff Doctor Time spent on discharge: > 30 minutes Pending Labs Laboratory Tests Test 01/08/19 05:23 01/08/19 05:24 Sodium Level 142 mmol/L (135-144) Potassium Level 3.9 mmol/L (3.5-5.1) Chloride Level 108 mmol/L (97-110) Carbon Dioxide Level 26 mmol/L (21-31) Anion Gap 8 (5-13) Blood Urea Nitrogen 9 mg/dl (7-20) Creatinine 0.84 mg/dl (0.44-1.00) Est Glomerular Filtrat > 60 mL/min (>60) Rate mL/min Glucose Level 105 mg/dl (70-220) Calcium Level 8.9 mg/dl (8.4-10.2) Total Bilirubin 0.3 mg/dl (0.2-1.3) Direct Bilirubin 0.00 mg/dl (0.00-0.20) Indirect Bilirubin 0.3 mg/dl (0-1.1) Aspartate Amino 15 IU/L (15-46) Transf (AST/SGOT) Alanine 20 IU/L (13-69) Aminotransferase (ALT/SGPT) Alkaline Phosphatase 50 IU/L (42-121) Total Protein 6.7 g/dl (6.1-8.1) Albumin 3.6 g/dl (3.3-4.9) Globulin 3.10 g/dl (1.3-3.2) Albumin/Globulin Ratio 1.16 White Blood Count 13.3 10^3/ul (4.8-10.8) Red Blood Count 4.52 10^6/ul (4.20-5.40) Hemoglobin 12.8 g/dl (12.0-16.0) Hematocrit 38.7 % (37.0-47.0) Mean Corpuscular Volume 85.6 fl (82.0-101.0) Mean Corpuscular Hemoglobin 28.3 pg (29.0-33.0) Mean Corpuscular 33.1 g/dl (32.0-37.0) Hemoglobin Concent Red Cell Distribution Width 13.0 % (11.5-14.5) Platelet Count 219 10^3/UL (140-415) Mean Platelet Volume 11.4 fl (7.4-10.4) Immature Granulocytes % 0.500 % (0.001-0.429) Neutrophils % 77.8 % (39.0-77.0) Lymphocytes % 11.6 % (15.0-51.0) Monocytes % 10.0 % (0.0-11.0) Eosinophils % 0.0 % (0.0-7.0) Basophils % 0.1 % (0.0-2.0) Nucleated Red Blood Cells % 0.0 /100WBC (0.0-0.0) Immature Granulocytes # 0.070 10^3/ul (0.0-0.031) Neutrophils # 10.3 10^3/ul (1.6-7.5) Lymphocytes # 1.5 10^3/ul (0.8-2.9) Monocytes # 1.3 10^3/ul (0.3-0.9) Eosinophils # 0.0 10^3/ul (0.0-0.5) Basophils # 0.0 10^3/ul (0.0-0.1) Nucleated Red Blood Cells # 0.0 10^3/ul (0.0-0.0) Phosphorus Level 4.9 mg/dl (2.5-4.9) Magnesium Level 2.0 mg/dl (1.7-2.5) LORENZO AUGUST NP Jan 08, 2019 13:43
== END 2019-01-08 13:32 | disposition home or self-care (01) | DRG 694 ==
LOC: PP2 20:47
PROVIDERS: ADMIT Internal Medicine; ATTEND Internal Medicine
DX: N13.1 Hydronephrosis with ureteral stricture, not elsewhere classified (principal); J45.909 Unspecified asthma, uncomplicated; F32.9 Major depressive disorder, single episode, unspecified; F41.9 Anxiety disorder, unspecified; F14.90 Cocaine use, unspecified, uncomplicated
CPT/HCPCS: 71045; 74018; 76775; 78708; 80053; 80307; 81003; 83735; 84100; 84703; 85025; 87081; 87086; 94640; 94664; A9562; J1170; J1940; J2060; J2270; J2405; J2930; J7030